=== PATIENT | male | born 1975 | race Two or more races ===

== ENCOUNTER 2023-09-16 01:17 | Emergency (ER) | payer MEDICARE, OTHER ==
[~2023-09-16] VITALS: Ht 180.3 cm; Wt 73.9 kg
[2023-09-16 07:53] VITALS: BP 111/64; TEMP 97.1; O2SAT 98
== END 2023-09-16 07:53 | disposition home or self-care (01) ==
LOC: ER 01:20
DX: F10.129 Alcohol abuse with intoxication, unspecified (principal); Z59.00 Homelessness unspecified; Y90.9 Presence of alcohol in blood, level not specified